=== PATIENT | male | born 1990 | race American Indian/Alaskan Native ===

== ENCOUNTER 2016-06-03 17:05 | Emergency (ER) | payer SELFPAY ==
[2016-06-03] MEDS ORDERED: ZOFRAN ODT ONE (17:16)
[2016-06-03] MEDS ORDERED: ZOFRAN ODT PO ONE (17:20)
[2016-06-03] MEDS ORDERED: PEPCID PO ONE (19:39)
[2016-06-03] MEDS ORDERED: BENADRYL PO ONE (19:39)
--- NOTE | 2016-06-03 19:42 | Emergency Department Report ---
HPI - General Chief Complaint: Allergic Reaction - HPI HPI: 25-year-old -[place] male comes in reports that he's allergic reaction after eating a slice of pizza with sourdough. 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 Patient complains of nausea vomiting. He reportedly vomited one time that having severe crampiness of his belly. He reports he has no past medical history currently takes no medication and has no known drug allergies. Patient reports he was given something for nausea in triage was has helped with his nausea. ED Past Medical Hx - Past Medical History Previous Medical History?: No - Surgical History Past Surgical History?: No - Social History Smoking Status: Never Smoker Substance Use Type: None - Medications Home Medications: Home Medications Medication Instructions Recorded Confirmed Last Taken Type Famotidine [Pepcid] 20 mg PO BID #20 tablet 06/03/16 Unknown Rx Ondansetron [Zofran Odt] 4 mg PO Q8HR #12 tab.rapdis 06/03/16 Unknown Rx ED Review of Systems ROS: Stated complaint: ALLERGIC REACTION/RONNY Other details as noted in HPI Constitutional: denies: chills, fever ENT: denies: ear pain, throat pain Respiratory: denies: cough, shortness of breath, wheezing Cardiovascular: denies: chest pain, palpitations Gastrointestinal: abdominal pain, nausea, vomiting Musculoskeletal: denies: back pain, joint swelling, arthralgia Skin: denies: rash, lesions Physical Exam - Physical Exam Vital Signs: Vital Signs 06/03/16 17:13 Temperature 98.4 F Pulse Rate 92 H Respiratory 18 Rate Blood Pressure 152/110 O2 Sat by Pulse 99 Oximetry General: GENERAL: Alert and oriented x3, patient is laying in a position holding his stomach. Patient is actively vomiting Physical Exam: HEAD: Head is normocephalic and a-traumatic. EYES: Extra ocular muscles are intact. Pupils are equal, round, and reactive to light and accommodation. NOSE: Nose symetrical, Nontender,Nares appeared normal. MOUTH:Mouth is well hydrated and without lesions. Tonsils nonerythematous or swollen, Uvula midline, Tongue not elevated. Mucous membranes are moist. Posterior pharynx clear, no exudate or lesions. Patent airways. NECK: Supple. Non edematous, No carotid bruits. No lymphadenopathy or thyromegaly. LUNGS: Symetrical with respiration, No wheezing, no rales or crackles, CTAB. HEART: S1, S2 present, tachycardia rate and rhythm without murmur, no rubs, no gallops. ABDOMEN: No organomegaly was noted,Positive bowel sounds, soft, and non- distended. . Tender to palpate in the mid epigastric area NO CVA tenderness. EXTREMITIES/MUSCULOSKELETAL: No cyanosis, clubbing, rash, lesions or edema. Full ROM bilaterally. UE/LE Pulses 2+ bilaterally. LE and UE 5+ strength bilaterally NEUROLOGIC: No focal Deficit, Cranial nerves II through XII are grossly intact. No loss of sensation, No facial droop, PSYCHIATRIC: Mood is congruent with affect, SKIN: Warm and dry, No lesions, No ulceration or induration present ED Course Vital Signs 06/03/16 17:13 Temperature 98.4 F Pulse Rate 92 H Respiratory 18 Rate Blood Pressure 152/110 O2 Sat by Pulse 99 Oximetry - Reevaluation(s) Reevaluation #1: 06/03/16 23:55 She reports she feels much better after having IV fluids and medication. ED Medical Decision Making - Lab Data Result diagrams: 06/03/16 20:14 06/03/16 23:00 - Medical Decision Making This patient's been evaluated by this provider in fast track. We will give patient IV insertion IV Pepcid 20 mg Benadryl 50 mg IV as well as Zofran IV 4 mg. We will also give him a bolus of normal saline. CBC BMP is ordered area. BM P came back with elevated calcium 11.2. Discussed with Dr. Verdin we repeated the BMP calcium is not 8.3 we will have patient follow up with the primary care provider. Critical care attestation.: If time is entered above; I have spent that time in minutes in the direct care of this critically ill patient, excluding procedure time. ED Disposition Clinical Impression: Allergic reaction to food Disposition: DISCHARGED TO HOME OR SELFCARE Is pt being admited?: No Does the pt Need Aspirin: No Condition: Stable Instructions: Food Allergy (ED) Additional Instructions: Please try to avoid consuming foods that contain sourdough. Take medication as prescribed. Follow-up with her primary care provider. Prescriptions: Famotidine [Pepcid] 20 mg PO BID #20 tablet Ondansetron [Zofran Odt] 4 mg PO Q8HR #12 tab.rapdis Forms: Accompanied Note, Work/School Release Form(ED)
[2016-06-03] MEDS ORDERED: PEPCID IV ONE (19:45)
[2016-06-03] MEDS ORDERED: BENADRYL IV ONE (19:45)
[2016-06-03] MEDS ORDERED: NACL 0.9% 1000 ML 1,000 ML IV ONE (19:46)
[2016-06-03] MEDS ORDERED: ZOFRAN IV NR (20:00)
[2016-06-03 20:56] LABS: Hematocrit 39.7 % (35.5-45.6); Hemoglobin 12.8 gm/dl (11.8-15.2); Mean Corpuscular HGB Conc 32 % (32-34); Mean Corpuscular Hemoglobin 29 pg (28-32); Mean Corpuscular Volume 90 fl (84-94); Platelet Count 148 K/mm3 (140-440); Red Blood Count 4.43 M/mm3 (3.65-5.03); Red Cell Distribution Width 13.6 % (13.2-15.2); White Blood Count 12.3 K/mm3 (4.5-11.0)
[2016-06-03 21:06] LABS: BUN/Creatinine Ratio 15.71; Blood Urea Nitrogen 11 mg/dL (9-20); Calcium 11.2 mg/dL (8.4-10.2); Carbon Dioxide 24 mmol/L (22-30); Glucose 103 mg/dL (75-100)
[2016-06-03 21:07] LABS: Anion Gap 15 mmol/L; Chloride 103.2 mmol/L (98-107); Potassium 3.6 mmol/L (3.6-5.0); Sodium 139 mmol/L (137-145)
[2016-06-03 23:15] LABS: Anion Gap 15 mmol/L; BUN/Creatinine Ratio 15.71; Blood Urea Nitrogen 11 mg/dL (9-20); Calcium 8.3 mg/dL (8.4-10.2); Carbon Dioxide 24 mmol/L (22-30); Chloride 105.9 mmol/L (98-107); Glucose 96 mg/dL (75-100); Potassium 3.6 mmol/L (3.6-5.0); Sodium 141 mmol/L (137-145)
[2016-06-04 00:44] VITALS: BP 147/79
== END 2016-06-04 00:40 | disposition home or self-care (01) ==
LOC: ED 17:05
DX: T78.1XXA Other adverse food reactions, not elsewhere classified, initial encounter (principal); X58.XXXA Exposure to other specified factors, initial encounter
CPT/HCPCS: 36415; 80048; 85027; 96361; 96374; 96375; 99283; J1200; J2405; J7030; Q0162

== ENCOUNTER 2018-11-14 11:57 | Emergency (ER) | payer SELFPAY ==
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
[2018-11-14 12:07] VITALS: BP 129/67
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
[2018-11-14] MEDS ORDERED: FLEXERIL PO ONE (13:06)
[2018-11-14] MEDS ORDERED: IBUPROFEN PO ONE (13:07)
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
== END 2018-11-14 13:30 | disposition home or self-care (01) ==
LOC: ED 11:57
DX: M25.531 Pain in right wrist (principal); F17.200 Nicotine dependence, unspecified, uncomplicated; Z79.899 Other long term (current) drug therapy; Z79.1 Long term (current) use of non-steroidal anti-inflammatories (NSAID); V89.2XXA Person injured in unspecified motor-vehicle accident, traffic, initial encounter; Y93.89 Activity, other specified; Y92.488 Other paved roadways as the place of occurrence of the external cause; Y99.8 Other external cause status
CPT/HCPCS: 99283